=== PATIENT | female | born 1940 | race Caucasian/White ===

== ENCOUNTER 2020-06-26 14:04 | Outpatient (CLI) | payer MEDICARE, SELFPAY ==
--- NOTE | ~2020-06-26 | US_ITS ---
EXAMINATION: US carotid duplex BI DATE: 06/26/2020 15:02 INDICATION: Stroke with paresthesias at the right hand. TECHNIQUE: Grayscale, color Doppler, and pulsed Doppler images of the cervical carotid arteries were obtained. The degree of vessel stenosis is placed in one of the following categories: normal, <50%, 5 0-69%, >=70% but less than near-occlusion, near-occlusion, or total occlusion. Note that percent sten osis relative to normal distal artery lumen diameter is indirectly measured from velocity measurement s as described by Albert, et al. Radiology 2003; 229:340-346. COMPARISON: None. FINDINGS: RIGHT: The right common carotid artery (CCA) peak systolic velocity (PSV) is 76 cm/s. The right internal car otid artery (ICA) PSV is 55 cm/s. The right ICA end-diastolic velocity (EDV) is 19 cm/s. The right IC A/CCA PSV ratio is 0.7. Grayscale and color Doppler images yield an estimate of <50% diameter reducti on from minimal plaque in the ICA. The external carotid artery (ECA) PSV is 116 cm/s. There is antegr bonny flow in the right vertebral artery. LEFT: The left CCA PSV is 74 cm/s. The left ICA PSV is 67 cm/s. The left ICA EDV is 20 cm/s. The left ICA/C CA PSV ratio is 0.9. Grayscale and color Doppler images yield an estimate of <50% diameter reduction from minimal plaque in the ICA. The ECA PSV is 80 cm/s. There is antegrade flow in the left vertebral artery. IMPRESSION: 1. <50% stenosis in the right internal carotid artery. 2. <50% stenosis in the left internal carotid artery. Reviewed, dictated and finalized at location A.
== END 2020-06-26 14:05 | disposition home or self-care (01) ==
LOC: ANHIMG 14:13
PROVIDERS: PCP Internal Medicine; Visit Provider Internal Medicine
DX: I63.9 Cerebral infarction, unspecified (principal); I65.23 Occlusion and stenosis of bilateral carotid arteries
CPT/HCPCS: 93880

== ENCOUNTER 2020-07-31 14:10 | Outpatient (CLI) | payer MEDICARE, SELFPAY ==
--- NOTE | 2020-07-31 | ECHO_ITS ---
Patient Info Name: Antonieta Frost Age: 79 years : 1940 Gender: Female Ht: 61 in Wt: 148 lbs BSA: 1.72 m2 HR: 77 bpm BP: 141 / 86 mmHg Heart Rhythm: Sinus Rhythm Technical Quality: Good Exam Date: 07/31/2020 2:49 PM Exam Location: [facility] Patient Status: Outpatient Admit Date: 07/31/2020 Staff Ordering Physician: CoryMagy MD Processing Technologist: Prince Sadler RDCS, RT Attending Provider: EliceoMagy MD Referring Physician: Cory RICHEY; Exam Type: CA echo doppler color flow Study Info Indications I63.219 - Cerebral infarction due to unspecified occlusion or stenosis of unspecified vertebral arteries Complete two-dimensional, color flow and Doppler transthoracic echocardiogram is performed. Summary 1. Complete two-dimensional, color flow and Doppler transthoracic echocardiogram is performed. 2. Left ventricular systolic function is normal, estimated at 60-65%. 3. There is moderate asymmetric septal increased left ventricular wall thickness. 4. The left ventricular diastolic function is grade I diastolic dysfunction. 5. There is mild mitral valve regurgitation. 6. There is no aortic valve stenosis. 7. No pulmonary hypertension, estimated pulmonary arterial systolic pressure is 26 mmHg. 8. Inferior vena cava is not well visualized. 9. There is trivial pericardial effusion. 10. Consider bubble study to assess for intracardiac shunt and/or transesophageal echocardiogram if clinically indicated. Recommendations * Consider bubble study to assess for intracardiac shunt and/or transesophageal echocardiogram if clinically indicated. Left Ventricle Left ventricular chamber dimension is normal. Left ventricular systolic function is normal, estimated at 60-65%. There is moderate asymmetric septal increased left ventricular wall thickness. The left ventricular diastolic function is grade I diastolic dysfunction. Right Ventricle Right ventricular chamber dimension is normal. Right ventricular systolic function is normal. Left Atria Left atrial chamber dimension is normal. Right Atria Right atrial chamber dimension is normal. Aortic Valve The aortic valve is not well visualized. There is no aortic valve stenosis. There is no aortic valve regurgitation. Pulmonic Valve The pulmonic valve is not well visualized. There is trace pulmonic regurgitation. Mitral Valve The mitral valve has normal leaflets. There is mild mitral valve regurgitation. The mitral valve annulus is mildly calcified. Tricuspid Valve The tricuspid valve leaflets are normal. There is trace tricuspid valve regurgitation. No pulmonary hypertension, estimated pulmonary arterial systolic pressure is 26 mmHg. Pericardium/Pleural The pericardium appears normal. There is trivial pericardial effusion. Inferior Vena Cava Inferior vena cava is not well visualized. Aorta The aortic root size at the sinus of Valsalva is normal. Left Ventricular Outflow Tract Name Value Normal LVOT 2D LVOT Diameter 2.0 cm LVOT Doppler LVOT Peak Gradient 7 mmHg LVOT Me
== END 2020-07-31 14:11 | disposition home or self-care (01) ==
PROVIDERS: PCP Internal Medicine; Visit Provider Internal Medicine
DX: I63.9 Cerebral infarction, unspecified (principal)
CPT/HCPCS: 93306

== ENCOUNTER 2021-01-28 13:56 | Emergency (ER) | payer MEDICARE, SELFPAY ==
--- NOTE | ~2021-01-28 | XR_ITS ---
XR sacrum coccyx min 2V 01/28/2021 15:09 Indication: Recent fall. Low back pain. Procedure: 3 views of the sacrum/coccyx Comparison: No prior studies for comparison. Findings: There is cortical discontinuity along the anterior margin of the lower sacrum, suspicious f or nondisplaced fracture. There is severe lower lumbar spondylosis. Sacral foramen are grossly symmet ce on the AP view. Visualized aspects of the pelvic bones are intact. Impression: 1: Possible nondisplaced lower sacral fracture seen on lateral view only. Reviewed, dictated and finalized at location A. GE DIVER Impression: 1: Possible nondisplaced lower sacral fracture seen on lateral view only.
[2021-01-28 14:14] VITALS: BP 161/90; PULSE 90; RESP 18; TEMP 37.1; O2SAT 97
--- NOTE | 2021-01-28 14:22 | PC.NURSE ---
RICHARD ontiveros at bedside
--- NOTE | 2021-01-28 14:50 | PC.NURSE ---
PT IN XRAY.
--- NOTE | 2021-02-05 08:52 | ED.GENADULT ---
HPI - General Adult General Chief complaint: Fall Stated complaint: fall, buttock pain Time Seen by Provider: 01/28/21 14:12 History of Present Illness HPI narrative: Patient is a 80-year-old female who presents ER with pain in her buttock region. Patient reports she slipped and fell down 1 step. This occurred about 2 weeks ago. She has been ambulatory since then. No lower extremity numbness or tingling. No issues with defecation/urination. Pain persist so she is concerned she may have a fracture. Patient has not been taking medications for her pain. No difficulty with sitting or standing or ambulation. When she fell she did not strike her head or lose consciousness. Related Data Allergies Allergy/AdvReac Type Severity Reaction Status Date / Time No Known Allergies Allergy Mild Unverified 03/11/09 11:06 Review of Systems Musculoskeletal: Musculoskeletal: Reports back pain, Denies joint swelling and Denies muscle cramps Neurologic: Denies syncope, Denies focal weakness and Denies numbness PMFSH Past Medical History Medical History (Updated 02/05/21 @ 08:56 by Piotr Barron MD) Hyperlipidemia Hypertension Surgical History Surgical History (Updated 02/05/21 @ 08:54 by Piotr Barron MD) History of ankle surgery History of surgery on right wrist Social History Social History Gender identity (if verbalized by the patient): Female Exam Narrative: Exam Narrative: GENERAL: Well-appearing, well-nourished, and in no acute distress. HEAD: Normocephalic, atraumatic. CHEST: Clear to auscultation. No respiratory distress. HEART: Regular rate and rhythm. No murmur heard. Normal peripheral pulses. EXTREMITIES: Normal range of motion. No edema. Ambulates without difficulty. Back: No midline tenderness of thoracic or lumbar spine. Patient has no gluteal cleft or sacral tenderness and reports her pain is in the glutes bilaterally which also do not demonstrate reproducible tenderness. NEURO: Alert and oriented x3. PSYCH: Normal mood and affect. Course Course Emergency Course: Patient walked out of the ER before she can get her x-ray results. Vital Signs Vital signs: Vital Signs Temperature 98.7 F 01/28/21 14:14 Pulse Rate 90 01/28/21 14:14 Respiratory Rate 18 01/28/21 14:14 Blood Pressure 161/90 H 01/28/21 14:14 Pulse Oximetry 97 01/28/21 14:14 Temperature 98.7 F 01/28/21 14:14 Pulse Rate 90 01/28/21 14:14 Respiratory Rate 18 01/28/21 14:14 Blood Pressure 161/90 H 01/28/21 14:14 Pulse Oximetry 97 01/28/21 14:14 Medical Decision Making Vital Signs Vital Signs: Vital Signs Temperature 98.7 F 01/28/21 14:14 Pulse Rate 90 01/28/21 14:14 Respiratory Rate 18 01/28/21 14:14 Blood Pressure 161/90 H 01/28/21 14:14 Pulse Oximetry 97 01/28/21 14:14 Temperature 98.7 F 01/28/21 14:14 Pulse Rate 90 01/28/21 14:14 Respiratory Rate 18 01/28/21 14:14 Blood Pressure 161/90 H 01/28/21 14:14 Pulse Oximetry 97 01/28/21 14:14 Imaging Data Radiologist's impression: ITS Impressions Sacrum and Coccyx X-Ray 01/28/21 15:11 Impression: 1: Possible nondisplaced lower sacral fracture seen on lateral view only. Discharge Plan Discharge Clinical Impression: Closed sacral fracture Patient Disposition: Elopement After Seen by Prov Condition: Stable Follow-up/Referrals: Cory,Magy Lundberg MD [Primary Care Provider] -
== END 2021-01-28 16:04 | disposition left against medical advice (07) ==
LOC: ANHED 14:39
PROVIDERS: Emergency Provider Emergency Medicine; PCP Internal Medicine
DX: S32.10XA Unspecified fracture of sacrum, initial encounter for closed fracture (principal); E78.5 Hyperlipidemia, unspecified; I10 Essential (primary) hypertension; W10.9XXA Fall (on) (from) unspecified stairs and steps, initial encounter
CPT/HCPCS: 72220; 99283

== ENCOUNTER 2024-10-31 11:29 | Emergency (ER) | payer MEDICARE, SELFPAY ==
--- NOTE | ~2024-10-31 | XR_ITS ---
XR hand RT min 3V Ordering provider: Bree Crooks NP History: . fall . Comparison: None. FINDINGS: BONES: Fracture at the base of the fifth metacarpal bone is noted. Fracture of the ulnar styloid is a lso noted. No other fractures seen. JOINT SPACES: Narrowing of the distal interphalangeal joints. SOFT TISSUES: Soft tissue swelling seen near to the fifth metacarpal bone. IMPRESSION: Fracture at the base of the right fifth metacarpal bone and in the right ulnar styloid. Reviewed, dictated and finalized at location A.
[2024-10-31 11:46] VITALS: BP 128/115; PULSE 75; RESP 18; TEMP 37.1; O2SAT 99
--- NOTE | 2024-10-31 12:11 | ED_ITS ---
HPI - Extremity Injury (Upper) General Chief Complaint: Extremity Injury, Upper Stated Complaint: right hand hurts Time Seen by Provider: 10/31/24 12:25 Source: patient and RN notes reviewed Mode of arrival: ambulatory Limitations: no limitations History of Present Illness HPI narrative: 84-year-old female presents with concern for right hand pain. Reports 11 days ago she fell and landed on her right hand has had lateral hand pain since that time. She reports her physical therapist urged her to get an x-ray. She reports pain with gripping. She denies decreased strength, sensation, range of motion in the hand or digits MD complaint: injury to: right and hand Related Data Home Medications ?Medication ?Instructions ?Recorded ?Confirmed ?Last Taken ?Type alendronate 70 mg tablet mg PO 10/31/24 Unknown History amlodipine 5 mg tablet mg 10/31/24 Unknown History carbidopa 25 mg-levodopa 100 mg tablet 10/31/24 Unknown History tablet losartan 50 mg tablet mg 10/31/24 Unknown History Allergies Allergy/AdvReac Type Severity Reaction Status Date / Time No Known Allergies Allergy Mild Verified 10/31/24 11:44 Review of Systems Review of Systems: CONSTITUTIONAL: Denies malaise, chills, sweats, or fever. CARDIOVASCULAR: Denies chest pain, palpitations, or edema. RESPIRATORY: Denies cough or dyspnea. SKIN: Denies rash or itching, bruising, redness, swelling. MUSCULOSKELETAL: Reports right hand pain NEUROLOGIC: Denies numbness, weakness All systems reviewed & are unremarkable except as noted in HPI and below PMFSH Past Medical History Medical History (Updated 10/31/24 @ 12:39 by Bree Crooks NP) Hyperlipidemia Hypertension Surgical History Surgical History (Updated 02/05/21 @ 08:54 by Piotr Barron MD) History of ankle surgery History of surgery on right wrist Social History Social History Gender identity (if verbalized by the patient): Female Comments At time of signature, agree with nursing past medical, surgical, social and family history. There is no relevant family history pertinent to the presenting complaint Exam Narrative: GENERAL: Well-appearing, well-nourished, and in no acute distress. HEAD: Normocephalic EYES: PERRLA, conjunctivae clear NECK: Supple. CHEST: Speaks in full sentences. No respiratory distress. HEART: Regular rate and rhythm. Normal and equal peripheral pulses. EXTREMITIES: Right hand and digits of hand have normal strength and sensation. 5/5 strength with digit flexion, extension. Range of motion normal. No clubbing, cyanosis, or edema noted. Lateral hand tenderness. Skin intact. Normal digital cascade with flexion of fingers, median, ulnar and radial nerve intact. Normal sensation of each side of finger. Can perform 'okay' sign, 'cross over finger test of index and middle fingers' and 'thumbs up' sign. No scissoring. Normal thumb opposition. Good capillary refill and radial pulse. Distal capillary refill less than 3 seconds. SKIN: [place], dry, intact, pink. No rash NEURO: Alert and oriented x3. PSYCH: Normal mood and affect Course Course Emergency Course: Patient uses a walker for mobility. I discussed the dilemma with her and her son regarding splinting her hand in having her use a walker. There is a device that can be adapted is a walker to use with an upper extremity injury, however that device is not available locally and has to be ordered online. Son reports he will assist his mother with mobility, they will order the walker attachment and follow-up with orthopedics. They would like her hand to be splinted today. Patient is aware of diagnosis, understands and agrees to treatment plan. Anticipatory guidance given. Patient agrees to follow-up as directed and is aware of reasons to seek care at the emergency department. Portions of this record may have been created with voice recognition software Level of Care: Express Care Visit Vital Signs Vital signs: Vital Signs Temperature 98.7 F 10/31/24 11:46 Pulse Rate 75 10/31/24 11:46 Respiratory Rate 18 10/31/24 11:46 Blood Pressure 128/115 H 10/31/24 11:46 Pulse Oximetry 99 10/31/24 11:46 Oxygen Delivery Room Air 10/31/24 11:46 Temperature 98.7 F 10/31/24 11:46 Pulse Rate 75 10/31/24 11:46 Respiratory Rate 18 10/31/24 11:46 Blood Pressure 128/115 H 10/31/24 11:46 Pulse Oximetry 99 10/31/24 11:46 Oxygen Delivery Room Air 10/31/24 11:46 Reviewed. Procedures Orthopedic Splinting/Casting Injury #1: Splinting/Casting Date: 10/31/24 Splinting/Casting Time: 12:35 Upper Extremity Injury Location: hand Splint: customized in ED OCL: ulnar gutter Pre-Procedure Neuro Vascular Exam: normal Post-Procedure Neuro Vascular Exam: normal Other Orthopedic Equipment: other (Sling) MDM - Extremity Injury (Upper) MDM Narrative Medical decision making narrative: Patients injury and pain is consistent with musculoskeletal etiology. No signs of neurological or vascular compromise on exam. Compartments and tissues are soft without signs of compartment syndrome. Pain is felt appropriate for further evaluation on an outpatient basis. Imaging Data My impression: Images reviewed, interpreted by radiologist, agree, see report. Radiologist's impression: XR hand RT min 3V Ordering provider: Bree Crooks NP History: . fall . Comparison: None. FINDINGS: BONES: Fracture at the base of the fifth metacarpal bone is noted. Fracture of the ulnar styloid is also noted. No other fractures seen. JOINT SPACES: Narrowing of the distal interphalangeal joints. SOFT TISSUES: Soft tissue swelling seen near to the fifth metacarpal bone. IMPRESSION: Fracture at the base of the right fifth metacarpal bone and in the right ulnar styloid. Critical Care Time Critical Care Time Critical Care Time: No Discharge Plan Discharge Clinical Impression: Fracture of metacarpal Patient Disposition: Home, Self-Care Condition: Stable Instructions: Antibiotic Form Additional Instructions: Please rest, ice and elevate the affected extremity. Please take Motrin 600mg every 8 hours, as needed, for pain (take with food). Follow up with Orthopedic Surgery in 1-2 days for further evaluation - please call for an appointment. Keep cast clean, dry and on. Please use garbage bag while showering to keep cast dry. Use a platform walker attachment to help keep weight off your hand when using her walker. Please go to ER immediately for increased pain, tingling/numbness, swelling, redness, and fever Patient Language: [place]ian Prescriptions: No Action losartan 50 mg tablet alendronate 70 mg tablet PO amlodipine 5 mg tablet carbidopa-levodopa 25-100 mg tablet Follow-up/Referrals: Farhad Casas MD [Physician] - Magy Ray MD [Primary Care Provider] - Time of Disposition: 12:41
== END 2024-10-31 12:50 | disposition home or self-care (01) ==
PROVIDERS: Emergency Provider Nurse Practitioner; PCP Internal Medicine
DX: S62.316A Displaced fracture of base of fifth metacarpal bone, right hand, initial encounter for closed fracture (principal); W19.XXXA Unspecified fall, initial encounter; E78.5 Hyperlipidemia, unspecified; I10 Essential (primary) hypertension
CPT/HCPCS: 29125; 73130; 99214; A4565; G0463

== ENCOUNTER 2025-02-19 14:35 | Emergency (ER) | payer MEDICARE, SELFPAY ==
--- NOTE | ~2025-02-19 | XR_ITS ---
HISTORY: FALL, PAIN POSTERIOR LEFT LOWER RIBS COMPARISON: None TECHNIQUE: 3 views of the left ribs were performed FINDINGS: Acute minimally displaced fractures of the left posterior lateral margins of the ninth and 10th ribs. No additional acute displaced fracture is appreciated. A small left-sided pleural effusion is identified. The remainder of the left hemithorax is unremarkable. Bone demineralization is age-appropriate. IMPRESSION: Acute minimally displaced fractures of the left posterior lateral margins of the ninth a nd 10th ribs. Reviewed, dictated and finalized at location A. IMPRESSION: Acute minimally displaced fractures of the left posterior lateral margins of the ninth and 10th ribs.
[2025-02-19 14:50] VITALS: BP 155/86; PULSE 77; RESP 18; TEMP 36.8; O2SAT 99
--- NOTE | 2025-02-19 15:20 | ED.FALL ---
HPI - Fall General Chief Complaint: Fall Stated Complaint: left side back pain after a fall Time Seen by Provider: 02/19/25 15:00 Source: patient Mode of arrival: ambulatory Limitations: no limitations History of Present Illness HPI Narrative: Antonieta is a 84-year-old female patient presenting to the clinic today with complaints of left lateral rib pain. She reports that she fell on Tuesday of last week and landed on the left side. Has bruising and swelling to the left lateral rib. Some discomfort with movement and when taking a deep breath. Denies any shortness of breath or chest pain. Denies hitting her head or any loss of consciousness. Related Data Home Medications ?Medication ?Instructions ?Recorded ?Confirmed ?Last Taken ?Type alendronate 70 mg tablet mg PO 10/31/24 02/05/25 Unknown History amlodipine 5 mg tablet mg 10/31/24 02/05/25 Unknown History carbidopa 25 mg-levodopa 100 mg tablet 10/31/24 02/05/25 Unknown History tablet losartan 50 mg tablet mg 10/31/24 02/05/25 Unknown History ezetimibe 10 mg tablet 10 mg PO DAILY 11/05/24 02/05/25 Unknown History Allergies Allergy/AdvReac Type Severity Reaction Status Date / Time No Known Allergies Allergy Mild Verified 02/19/25 14:45 Review of Systems Review of Systems: Pertinent positives per HPI. Patient denies any fever, chills, rash, headache, visual changes, dizziness, cough, shortness of breath, chest pain, palpitations, nausea, vomiting, diarrhea, constipation, abdominal pain, or any urinary issues. [facility] Past Medical History Medical History BMI 28.0-28.9,adult At high risk for falls Osteoporosis Progressive supranuclear palsy Hyperlipidemia Hypertension Surgical History Surgical History History of ankle surgery History of surgery on right wrist Family History Family History Father Mother Social History Social History Smoking status: Never smoker Second hand tobacco smoke exposure: Yes Alcohol intake: never Substance use: never Substance use type: does not use Do You Feel Safe in your Home?: Yes Lack of Transportation: No Lack of Food: Never True Current Housing: I Have Housing Concerned About Future Housing: No Difficulty Paying Gas/Electric Bills: No Difficulty Paying for Meds: No Currently Unemployed: No Education: Bachelor's Degree Difficulty w/ Childcare or Family Care: No Living arrangements: alone Occupation/Education: retired Additional occupation/education comments: [employer] Gender identity (if verbalized by the patient): Female Comments At the time of my signature, I reviewed and agree with the nursing past medical, surgical, social, and family history. There is no relevant family history pertinent to the patient complaint. Exam Narrative: General: Well-developed, well nourished, in no apparent distress Head: Normocephalic, atraumatic. Chest wall: Bruising and mild swelling noted to the left posterior lateral ribs, tenderness to palpation over this area, even rise and fall of the chest wall with respirations Cardio: Regular rate and rhythm, s1 and s2 normal, no murmur appreciated. Resp: Clear to auscultation bilaterally, no rhonchi, rales, wheezing or rubs. Extremities: No deformity, no edema, no cyanosis, capillary refill less than 2 seconds, peripheral pulses palpable and strong. Integumentary: [place], warm, and dry, bruising noted to the chest wall/left lateral ribd Course Course Emergency Course: Portions of this record may have been created with voice recognition software. Level of Care: Express Care Visit Vital Signs Vital signs: Vital Signs Temperature 36.8 C 02/19/25 14:50 Pulse Rate 77 02/19/25 14:50 Respiratory Rate 18 02/19/25 14:50 Blood Pressure 155/86 H 02/19/25 14:50 Pulse Oximetry 99 02/19/25 14:50 Oxygen Delivery Room Air 02/19/25 14:50 Temperature 36.8 C 02/19/25 14:50 Pulse Rate 77 02/19/25 14:50 Respiratory Rate 18 02/19/25 14:50 Blood Pressure 155/86 H 02/19/25 14:50 Pulse Oximetry 99 02/19/25 14:50 Oxygen Delivery Room Air 02/19/25 14:50 Vital signs reviewed MDM - Fall MDM Narrative Medical decision making narrative: At the time of visit patient is resting comfortably on the exam table. Patient appears to be nontoxic. Diagnostics: X-ray of the left ribs were performed and shows some acute minimally displaced 9th and 10th ribs-small left-sided pleural effusion Plan: Patient has rib fracture to the 9th and 10th rib on the left side. Lung sounds are clear and patient oxygenation saturation is 99%. Denies any chest pain or shortness of breath. Recommend follow-up with her PCP in 5-7 days. Supportive measures were discussed with the patient and they voiced understanding discharge instructions and agrees to treatment plan. Return precautions reviewed Differential Diagnosis Differential diagnosis: Likely other (Rib contusion, chest wall contusion, rib fracture, pneumothorax, hemothorax) Imaging Data Radiologist's impression: ITS Impressions Ribs X-Ray 02/19/25 16:00 IMPRESSION: Acute minimally displaced fractures of the left posterior lateral margins of the ninth and 10th ribs. Discharge Plan Discharge Clinical Impression: Pleural effusion Left rib fracture Qualifiers: Encounter type: initial encounter Rib fracture type: multiple ribs Fracture type: closed Qualified Code(s): S22.42XA - Multiple fractures of ribs, left side, initial encounter for closed fracture Patient Disposition: Home, Self-Care Condition: Stable Instructions: Antibiotic Form, Rib Fracture (ED), Pleural Effusion (DC) Additional Instructions: X-ray shows acute minimally displaced fractures of the left posterior lateral margins of the 9th and 10th rib Splint the area with cough, sneezing, and taking deep breaths Incentive spirometer every 2-4 hours while awake May take Tylenol/Motrin as needed for pain Follow-up with your PCP in 5-7 days If you develop worsening of symptoms-increasing chest pain, shortness of breath, difficulty breathing, fever, confusion, weakness, or lethargy recommend going to the emergency room Patient Language: Citizen Of [place] Prescriptions: No Action losartan 50 mg tablet alendronate 70 mg tablet PO amlodipine 5 mg tablet carbidopa-levodopa 25-100 mg tablet ezetimibe 10 mg tablet 10 mg PO DAILY Follow-up/Referrals: Prince Walsh DO [Primary Care Provider] - Time of Disposition: 16:18 Quality NIHSS Nursing Documentation ED NIHSS nursing documentation: reviewed/agree
== END 2025-02-19 16:25 | disposition home or self-care (01) ==
PROVIDERS: Emergency Provider Nurse Practitioner Family; PCP Family Medicine
DX: J90 Pleural effusion, not elsewhere classified (principal); S22.42XA Multiple fractures of ribs, left side, initial encounter for closed fracture; W19.XXXA Unspecified fall, initial encounter; M81.0 Age-related osteoporosis without current pathological fracture; I10 Essential (primary) hypertension; E78.5 Hyperlipidemia, unspecified; G23.1 Progressive supranuclear ophthalmoplegia [Steele-Richardson-Olszewski]
CPT/HCPCS: 71100; 99213; G0463

== ENCOUNTER 2025-09-09 12:43 | Emergency (ER) | payer MEDICARE, SELFPAY ==
--- NOTE | ~2025-09-09 | CT_ITS ---
EXAMINATION: CT brain wo con DATE: 09/09/2025 13:43 INDICATION: Fall with head injury and laceration to the head TECHNIQUE: Computed tomography (CT) of the head was performed without intravenous contrast. Sagittal and coronal reconstructions were performed. The mA was adjusted according to patient size. Iterative reconstruction technique was employed. The dose-length product was 605.33 mGy-cm. COMPARISON: None FINDINGS: Chronic appearing fracture with mild angulation at the left nasal bone. No fracture. No acute intracranial hemorrhage, acute infarction or abnormal extra axial fluid collection. There is mild scattered white matter hypoattenuation consistent with chronic small vessel ischemic disease. Symmetric prominence of the sulci consistent with mild to moderate age-appropriate diffuse cerebral volume loss. Ventricles are normal and symmetric. No mass/mass effect. Changes of bilateral intraocular lens replacement. The orbits and mastoid air cells are normal. Osteoma the right frontoethmoidal recess. Paranasal sinuses otherwise unremarkable. Bilateral evin bullosa. Likely developmentally midline developmental nonfusion of the anterior and posterior ring of C1. IMPRESSION: 1. Chronic appearing mildly angulated left ischial bone fracture. No acute fracture or acute intracranial process. 2. Age-related changes including mild to moderate diffuse volume loss and mild scattered white matter hypoattenuation consistent with chronic small vessel ischemic disease. Reviewed, dictated and finalized at location A. IMPRESSION: 1. Chronic appearing mildly angulated left ischial bone fracture. No acute frac ture or acute intracranial process. 2. Age-related changes including mild to moderate diffuse volume loss and mild scattered white matter hypoattenuation consistent with chronic small vessel isc hemic disease.
--- NOTE | ~2025-09-09 | CT_ITS ---
EXAMINATION: CT cervical spine wo con DATE: 09/09/2025 13:43 INDICATION: Status post fall. Head injury. TECHNIQUE: Computed tomography (CT) of the cervical spine was performed without intravenous contrast. The dose-length product was 194 mGy-cm. Automated exposure control and iterative reconstruction technique were employed. COMPARISON: None FINDINGS: There is disc narrowing at C4-5, C5-6 and C6-7. There is degenerative anterolisthesis at C3-4 secondary to facet hypertrophy. Odontoid process is normal. Craniovertebral junction within normal limits. No evidence for perched facet. There is multilevel uncinate and facet hypertrophy. There is a sclerotic lesion of C5 on the right most likely benign bone island, although metastatic disease is not excluded. No paraspinal soft tissue abnormality. Lung apices are normal. IMPRESSION: 1. No acute abnormality of the cervical spine. 2: Severe cervical spondylosis with degenerative anterolisthesis at C3-4. 3: Sclerotic lesion of C5 involving the posterior aspect of the body on the right extending to the pedicle. Although this is likely a benign bone island there are no prior examinations for direct comparison. There is a history of malignancy, consider metastatic disease. Reviewed, dictated and finalized at location O. IMPRESSION: 1. No acute abnormality of the cervical spine. 2: Severe cervical spondylosis with degenerative anterolisthesis at C3-4. 3: Sclerotic lesion of C5 involving the posterior aspect of the body on the rig ht extending to the pedicle. Although this is likely a benign bone island there are no prior examinations for direct comparison. There is a history of maligna ncy, consider metastatic disease.
[2025-09-09 12:51] VITALS: BP 119/61; PULSE 74; RESP 20; TEMP 36.3; O2SAT 99
--- NOTE | 2025-09-09 14:24 | PC.NURSE ---
Called Kerrie at [facility] ([phone]) and gave nurse to nurse report. Discussed imaging/results and POC, advised will update Tetanus booster and pt is to be sent back w/ a staple removal. Per Kerrie, she will call pts son who is local and request for him to come pick her up, no vehicle service provided by [facility].
--- NOTE | 2025-09-09 14:27 | ED.WOUNDLAC ---
HPI - Wound/Laceration General Chief Complaint: Wound/Laceration Stated Complaint: fell today hit head Time Seen by Provider: 09/09/25 13:56 History of Present Illness HPI narrative: Patient is an 85-year-old female who presents ER after falling and striking her head. She was in her bathroom when she lost balance falling back and striking her head but unsure on what she struck on. She has 1.5 cm laceration to the occiput. Unknown last tetanus shot. No discomfort to any extremities. No neck pain. Denies fevers or chills or sweats. Related Data Home Medications ?Medication ?Instructions ?Recorded ?Confirmed ?Last Taken ?Type ezetimibe 10 mg tablet 10 mg PO DAILY 11/05/24 06/03/25 Unknown History acetaminophen 500 mg tablet 500 mg PO Q4H PRN 02/21/25 06/03/25 Unknown History (Tylenol Extra Strength) amlodipine 5 mg tablet 5 mg PO DAILY 05/01/25 06/03/25 Unknown History carbidopa 25 mg-levodopa 100 mg 1 tablet PO TID 05/01/25 06/03/25 Unknown History tablet losartan 50 mg tablet 50 mg PO DAILY 05/01/25 06/03/25 Unknown History Allergies Allergy/AdvReac Type Severity Reaction Status Date / Time No Known Allergies Allergy Mild Verified 09/09/25 12:49 Review of Systems Review of Systems: All systems reviewed & are unremarkable except as noted in HPI and below Constitutional: Constitutional: Reports no additional constitutional complaints Cardiovascular: Cardiovascular: Reports no additional cardiovascular complaints Respiratory: Respiratory: Reports no additional respiratory complaints Neurologic: Reports system reviewed and no additional complaints, except as documented [facility] Past Medical History Medical History BMI 28.0-28.9,adult At high risk for falls Osteoporosis Progressive supranuclear palsy Hyperlipidemia Hypertension Surgical History Surgical History History of ankle surgery History of surgery on right wrist Family History Family History Father Mother Social History Social History Smoking status: Never smoker Second hand tobacco smoke exposure: Yes Alcohol intake: never Substance use: never Substance use type: does not use Do You Feel Safe in your Home?: Yes Lack of Transportation: No Lack of Food: Never True Current Housing: I Have Housing Concerned About Future Housing: No Difficulty Paying Gas/Electric Bills: No Difficulty Paying for Meds: No Currently Unemployed: No Education: Bachelor's Degree Difficulty w/ Childcare or Family Care: No Living arrangements: alone Occupation/Education: retired Additional occupation/education comments: [employer] Gender identity (if verbalized by the patient): Female Exam Narrative: GENERAL: Well-appearing, well-nourished, and in no acute distress. HEAD: Normocephalic, to cm laceration left posterior occipital region. ENT: Mucous membranes moist. CHEST: Clear to auscultation. No respiratory distress. HEART: Regular rate and rhythm. Normal peripheral pulses. EXTREMITIES: Normal range of motion. No edema. SKIN: Warm, dry, no rash. NEURO: Alert and oriented x3. PSYCH: Normal mood and affect. Course Course Emergency Course: Laceration closed. Tetanus updated. Discussed lytic lesion on C-spine, no history of malignancy, likely bone island. Follow-up with PCP. Discharge. Vital Signs Vital signs: Vital Signs Temperature 97.3 F L 09/09/25 12:51 Pulse Rate 74 09/09/25 12:51 Respiratory Rate 20 09/09/25 12:51 Blood Pressure 119/61 09/09/25 12:51 Pulse Oximetry 99 09/09/25 12:51 Temperature 97.3 F L 09/09/25 12:51 Pulse Rate 74 09/09/25 12:51 Respiratory Rate 20 09/09/25 12:51 Blood Pressure 119/61 09/09/25 12:51 Pulse Oximetry 99 09/09/25 12:51 Procedures Laceration Laceration 1: Date: 09/09/25 Time: 14:40 Size (cm): 2 Description: linear Depth: simple, single layer Pre-repair: wound explored and irrigated ====== Skin Level ====== Skin layer closed with: duatre Number of sutures: 3 ====== Subcutaneous Layer ====== ====== Muscle Layer ====== ====== Tendon Layer ====== MDM - Wound/Laceration Imaging Data Radiologist's impression: ITS Impressions Head CT 09/09/25 13:44 IMPRESSION: 1. Chronic appearing mildly angulated left ischial bone fracture. No acute fracture or acute intracranial process. 2. Age-related changes including mild to moderate diffuse volume loss and mild scattered white matter hypoattenuation consistent with chronic small vessel ischemic disease. Cervical Spine CT 09/09/25 13:57 IMPRESSION: 1. No acute abnormality of the cervical spine. 2: Severe cervical spondylosis with degenerative anterolisthesis at C3-4. 3: Sclerotic lesion of C5 involving the posterior aspect of the body on the right extending to the pedicle. Although this is likely a benign bone island there are no prior examinations for direct comparison. There is a history of malignancy, consider metastatic disease. Discharge Plan Discharge Clinical Impression: Laceration of scalp, Bone island Patient Disposition: Home Condition: Stable Instructions: Staple Care (ED) Additional Instructions: Remove your duarte in 7 days. Return the ER if your wound is red and hot, it is draining pus, or you have additional concerns. Patient Language: Tajik Prescriptions: No Action ezetimibe 10 mg tablet 10 mg PO DAILY acetaminophen [Tylenol Extra Strength] 500 mg tablet 500 mg PO Q4H PRN amlodipine 5 mg tablet 5 mg PO DAILY carbidopa-levodopa 25-100 mg tablet 1 tablet PO TID losartan 50 mg tablet 50 mg PO DAILY Calahist 1-0.1 % lotion 1 applic topical TID PRN (Reason: skin irritation) Qty: 177 0RF Follow-up/Referrals: Prince Walsh DO [Primary Care Provider, Family Practice] - 1 Week
[2025-09-09] MEDS: TETANUS,DIPHTHERIA,AC PERTUSSIS ADULT (0.5 ML) BOOSTRIX IM (14:30)
[2025-09-09 15:26] VITALS: BP 134/92; PULSE 80; RESP 18; O2SAT 97
--- OUTSIDE RECORDS SUMMARY | 2025-09-09 17:20 | XMS_ITS | Clinical Summary ---
Author Organization [facility] Address [address] [place] [address] Care Team Providers Care Value Advisor Name Role Phone Anthony Silva MD Unavailable [phone] Prince Walsh DO Primary Care Provider Allergies Active Allergy Reactions Criticality Noted Date Comments Hydrochlorothiazide Hydrocodone Unknown Low 09/03/2013 itchy Triamterene Medications calcium carbonate-vit D3-min 600 mg calcium- 400 unit tabletIndications :jacquie-500 daily vit d-600 daily Take by mouth Active amLODIPine (NORVASC) 2.5 mg tabletIndications :hypertension Take 2 tablets by mouth daily Active ezetimibe (ZETIA) 10 mg tabletIndications :hyperlipidemia Take 1 tablet by mouth daily Active losartan (COZAAR) 50 mg tabletIndications :hypertension Take 1 tablet by mouth daily Active alendronate (FOSAMAX) 70 mg tabletIndications :Post-Menopausal Osteoporosis Take 70 mg by mouth every 7 days. Indications: decreased bone mass following menopause Active amoxicillin (AMOXIL) 500 mg tablet/capsuleInd ications:Prophyla xis, Medical Take 2,000 mg by mouth 1 time if needed (dental procedure). Indications: Prophylaxis, Medical Active carbidopa-levodop a (SINEMET) 25-100 mg per tabletIndications :Parkinsonism Take 1.5 tablets by mouth 3 (three) times a day 405 tablet 3 5 11/02/20 25 Active citalopram (CeleXA) 10 mg tablet Take 1 tablet (10 mg total) by mouth daily 5 Active Active Problems Problem Noted Date Diagnosed Date Parkinsonism 08/14/2025 Assessment & Plan (08/14/2025 1:04 PM CDT): Mrs. Frost is an 84 y.o. 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 Briefly, she presented in the past to our clinic with a two year history of progressively worse gait impairment, and postural instability associated with daily falls. She also has a history of micrographia, and mild difficulty with fine motor movements. Since her last visit, she has had worsened mobility now requiring a walker at all times which has reduced her fall frequency. Her physical examination today is remarkable for significant postural instability, with no clear focal weakness. 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 She also had oculomotor difficulties, specifically vertical gaze limitation on smooth pursuit and saccades. There was also possible sq wave jerks on examination. Moreover, she had a prior MRI brain with evidence of midbrain atrophy. 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 Today, I offered her a trial of increased levodopa to see if she may notice possible further benefit for mobility, bradykinesia however she is not inclined to pursue this. She recently completed PT and should return when insurance will allow for this. Recommendations: Continue current carbidopa-levodopa 25/100 mg 1.5 tabs TID Resume PT when able Follow-up with Dr. Dockery in approximately 3-4 months if he has available she has not seen him since 08/2024 (and at at that visit he'd wanted to see her in 9 months) Annual NPT next visit Sinus pause 08/21/2020 Assessment & Plan (08/21/2020 12:15 PM CDT): Event monitor showed one asymptomatic 4.1 second pause in the an employee sponsor or advocate and of 06/29/2020, likely a sinus pause. She has no history of lightheadedness, presyncope, or syncope. I suspect that this was vasovagally mediated, perhaps during a bowel movement. In the absence of symptoms, a pacemaker is not indicated. I would recommend avoiding rate slowing medications. AV block, Mobitz 1 08/21/2020 Assessment & Plan (08/21/2020 12:16 PM CDT): Occasional episodes of asymptomatic Mobitz one second-degree AV block, including brief 2-1 av block. Like her sinus pause, these are asymptomatic. I would recommend avoiding medications which can affect AV conduction, such as diltiazem and verapamil. It is possible that over time conduction system disease will progress, but not certain that it will. Asymmetric septal hypertrophy 08/21/2020 Assessment & Plan (08/21/2020 12:17 PM CDT): This was described on her recent echo. It is not heard on exam, and there was no significant gradient at the left ventricular outflow tract. Systolic anterior motion of the mitral valve was not described. She does not have a murmur. She has no symptoms referable to this. I would consider it an incidental and insignificant finding. Old cerebrovascular accident (CVA) without late effect 08/21/2020 Assessment & Plan (08/21/2020 12:19 PM CDT): Small areas of hypoattenuation described on recent head CT. These are consistent with prior CVA, likely on the basis of hypertension. She has not been shown to have any atrial fibrillation, and the conditions which have been identified, sinus pauses, Mobitz one second-degree AV block, and hemodynamically well tolerated asymmetric septal hypertrophy, would not have contributed to CVAs. History of colonic polyps 06/04/2014 Overview (02/25/2017): PRSNL HST COLONIC POLYPS Family history of ischemic heart disease 014 Overview (02/23/2017): FAM HX-ISCHEM HEART DIS Benign hypertension 04/06/2014 Overview (02/23/2017): BENIGN HYPERTENSION Assessment & Plan (08/21/2020 12:18 PM CDT): Blood pressure is well controlled on her current regimen which she is tolerating well. It sounds as if blood pressure may not have been so well controlled prior to this regimen, which may have contributed to her infarcts seen on CT scan. Hyperlipidemia 04/06/2014 Overview (02/25/2017): HYPERLIPIDEMIA NEC/NOS Assessment & Plan (08/21/2020 12:20 PM CDT): Lipids are well controlled on her current small dose of rosuvastatin, which she should continue. Osteoarthritis of knee 04/06/2014 Overview (02/25/2017): Degenerative Arthritis of Knee Osteoporosis 04/06/2014 Overview (02/25/2017): OSTEOPOROSIS NOS Encounters Date Type Department Care Team Description 08/14/2025 12:00 PM CDT Office Visit [facility] Medicine Movement Disorders [address] [place] [address] Sadie Stratton NP Parkinsonism, unspecified Parkinsonism type (HCC) (Primary Dx) 08/14/2025 Telephone [facility] Medicine Scheduling [address] [place] [address] Goldie Irene from Last 3 Months Immunizations Immunization Administration Dates Next Due Influenza, Split 08/21/2010,09/21/2009 Pneumococcal Polysaccharide PPV23 11/21/2007 Tdap 05/09/2007 ZOSTER LIVE 05/09/2008 Surgical History Surgery Date Site/Laterality Comments OTHER SURGICAL HISTORY distal radius fx: ORIF OTHER SURGICAL HISTORY L ankle fx: s/p ORIF Medical History Medical History Date Comments Hx Other Medical distal radius f x Hx Other Medical L ankle fx Hypertension Osteoporosis Family History Medical History Relation Name Comments Heart attack Father Heart attack Sister Relation Name Status Comments Father Sister Social History Tobacco Use Types Packs/Day Years Used Date Smoking Tobacco: Never Smokeless Tobacco: Never Tobacco Cessation:Counseling Given: Not Answered Alcohol Use Standard Drinks/Week Comments Yes 0 (1 standard drink = 0.6 oz pur e alcohol) Very Seldom, Socially OASIS D0700: Social Isolation Answer Da te Recorded Frequency of experiencing loneliness or isolatio n Never 01/23/2025 OASIS A1250: Transportation Answer Date Recorded Lack of Transportation (Medical) No 01/23/2025 Lack of Transportation (Non-Medical) No 01/23/2025 Patient Unable or Declines to Respond No 01/23/2025 OASIS B1300: Health Literacy Answer All e Recorded Frequency of needing help to read materials from doctor or pharmacy Never 01/23/2025 Comments Unknown Sex and Gender Information Value Date Recorded Sex Assigned at Not on file Legal Sex Female 11:31 PM BONE DENSITY TECHNICIAN Gender Identity Not on file Sexual Orientation Not on file Obstetrics History Last Filed Vital Signs Vital Sign Reading Time Taken Comments Blood Pressure 151/77 08/14/2025 12:02 PM CDT Pulse 68 08/14/2025 12:02 PM CDT Temperature 36.5 C (97.7 F) 01/23/2025 1:45 PM BONE DENSITY TECHNICIAN Respiratory Rate 18 01/23/2025 1:45 PM BONE DENSITY TECHNICIAN Oxygen Saturation 98% 01/23/2025 1:45 PM BONE DENSITY TECHNICIAN Inhaled Oxygen Concentration - - Weight 60.1 kg (132 lb 9.6 oz) 08/14/2025 12:02 PM CDT Height 152.4 cm (5') 08/14/2025 12:02 PM CDT Body Mass Index 25.9 08/14/2025 12:02 PM CDT Plan of Treatment Health Maintenance Due Date Last Done Comments Fall Risk Assessment 1940 Hepatitis B Screening 1960 Well Visit 65+ 2007 Zoster Vaccine (2 of 3) 07/04/2008 05/09/2008 DTaP/Tdap/Td Vaccine (2 - Td or Tdap) 05/09/2017 05/09/2007 Osteoporosis Screening-Bone Density Scan 05/26/2024 05/26/2022, 02/20/2019, 01/09/2019, Additional history exists Depression Screening 01/12/2025 01/12/2024 Influenza Vaccine (#1) 2025 9, 08/21/2010, 09/21/2009 Pneumococcal vaccine 65+ Completed 020, 01/28/2019, 11/21/2007 Procedures Procedure Name Priority Date/Time Associated Diagnosis Comments DEXA AXIAL SKELETON BONE DENSITY 1 OR MORE SITES Schedule Routine, Read Routine (OP Routine) 05/26/2022 10:43 AM CDT Age-related osteoporosis without current pathological fracture from Last 3 Months or Most Recently Relevant to Health Maintenance Results * Dexa Axial Skeleton Bone Density 1 or 2 Site (05/26/2022 10:43 AM CDT) Anatomical Region Laterality Modality Body N/A Digital Radiogra phy 05/26/2022 10:5 9 AM CDT Impressions 05/26/2022 9:40 PM CDT 1. The bone mineral density of the lumbar spine is moderately decreased. There has been a statistically significant decrease in bone mineral density since the baseline examination of 05/11/1999. 2. The bone mineral density of the left femoral neck is moderately decreased. There has been a statistically significant decrease in bone mineral density since the baseline examination of 01/24/1997. 3. The bone mineral density of the left total hip is moderately decreased. There has been a statistically significant decrease in bone mineral density since the baseline examination of 01/24/1997. 4. Overall, the above findings are diagnostic of osteoporosis by WHO criteria. 5. Calculation of fracture risk using the FRAX model is not appropriate in certain settings. It was not performed in this patient because the patient met the following condition(s): treated for osteoporosis. General comments regarding interpretation of bone density measurements: A) In children, premenopausal woman and males under age 50 not at increased risk for fractures only Z-scores, not T-scores are used to indicate risk. A Z-score above -2.0 is defined as within the expected range for age and Z-score at or less than -2.0 is below the expected range for age. A Z-score below the expected range for age in a patient with recent fractures and/or chronic corticosteroid treatment is consistent with a diagnosis of osteoporosis. B) In post menopausal women and males over 50, comparison of the measured bone mineral density with the average value in young normal subjects (the T-score) has been found to be useful in assessing fracture risk. Fracture risk approximately doubles for each 1.0 standard deviation (SD) in individual's hip or spine bone mineral density is below the average value of young normal subjects. The World Health Organization (WHO) has defined T-scores of -1.0 to -2.5 as diagnostic of low bone mass (OSTEOPENIA), and T-scores of -2.5 or lower to be diagnostic of OSTEOPOROSIS, based on the site of lowest bone density. Note that there will be a change in reporting format and reference databases as patients move from the younger population (group A) to the older population (group B) The National Osteoporosis Foundation (www.nof.org) recommends adequate intake of calcium and vitamin D and regular weight-bearing exercise in all patients. They recommend pharmacologic treatment in postmenopausal women and men age 50 and older presenting with any of the followin) Osteoporosis, after appropriate evaluation to exclude secondary causes. 2) A hip or vertebral (clinical or radiographic) fracture, regardless of the bone density. 3) Low bone mass (Osteopenia) and one or more of: other prior fractures, secondary causes associated with high risk of fracture (such as glucocorticoid use or total immobilization), or computed high risk of fracture (10-yr probability of hip fracture >= 3% or a 10-yr probability of any major osteoporosis-related fracture >= 20% based on the [place].-adapted WHO algorithm), available at http://www.shef.ac.uk/FRAX). Dictated by: Hilaria Shafer MD The radiology attending physician has personally reviewed this study, and had reviewed and/or edited this written report and agrees with it. Electronically signed by: Ethel Ham MD, Ph.D Narrative 05/26/2022 9:40 PM CDT BONE DENSITOMETRY OF THE SPINE AND HIP DATE OF STUDY: 05/26/2022 HISTORY: 81-year-old postmenopausal woman with history of osteoporosis. She is being treated with vitamin D and calcium, previously treated with alendronate. Evaluate bone mineral density. Additional risk factors for fracture: None FINDINGS (SPINE): The bone mineral density of L1-L4 was assessed by dual-energy x-ray absorptiometry. The average bone mineral density within this region is 0.671 gm/sq-cm. This is 0.8 standard deviations below the mean of the average bone mineral density for age- and gender-matched subjects (the Z-score). It is 3.4 standard deviations below the mean peak bone mineral density in young adults (the T-score). FINDINGS (FEMORAL NECK): The bone mineral density of the left femoral neck was assessed by dual-energy x-ray absorptiometry. The average bone mineral density within the femoral neck region is 0.543 gm/sq-cm. This is 0.5 standard deviations below the mean of the average bone mineral density for age- and gender-matched subjects (the Z-score). It is 2.8 standard deviations below the mean peak bone mineral density in young adults (the T-score). FINDINGS (TOTAL HIP): The bone mineral density of the left hip was assessed by dual-energy x-ray absorptiometry. The average bone mineral density within the total hip region is 0.642 gm/sq-cm. This is 0.4 standard deviations below the mean of the average bone mineral density for age- and gender-matched subjects (the Z-score). It is 2.5 standard deviations below the mean peak bone mineral density in young adults (the T-score). SUMMARY OF CURRENT RESULTS: Region BMD T-score Z-score AP Spine (L1-L4) 0.671 -3.4 -0.8 Femoral Neck (Left) 0.543 -2.8 -0.5 Total Hip (Left) 0.642 -2.5 -0.4 COMPARISON WITH PREVIOUS RESULTS Region Age BMD T-score BMD Change BMD Change Exam Date g/cm2 vs Baseline vs Previous AP Spine (L1-L4) 05/26/2022 81 0.671 -3.4 -16.9%# -8.0%* 01/09/2019 78 0.730 -2.9 -9.7%# 7.7%# 05/16/2014 73 0.677 -3.4 -16.1%* -7.2%* 06/12/2008 67 0.730 -2.9 -9.6%* -5.6%* 04/22/2006 65 0.774 -2.5 -4.2%* 2.5% 03/25/2004 63 0.755 -2.7 -6.5%* -7.6%* 09/21/2001 61 0.817 -2.1 1.1% 1.1% 05/11/1999 58 0.808 -2.2 Femoral Neck(Left) 05/26/2022 81 0.543 -2.8 -7.9%# 8.6%* 01/09/2019 78 0.500 -3.1 -15.2%# 3.8%# 05/16/2014 73 0.482 -3.3 -18.3%# -6.1%* 06/12/2008 67 0.514 -3.0 -13.0%# -6.6%* 04/22/2006 65 0.550 -2.7 -6.8%# -0.4% 03/25/2004 63 0.552 -2.7 -6.4%# -11.2%* 09/21/2001 61 0.621 -2.1 5.3%# 3.2%# 05/11/1999 58 0.602 -2.2 2.0% 2.0% 01/24/1997 56 0.590 -2.3 Total Hip(Left) 05/26/2022 81 0.642 -2.5 -16.3%# 1.5% 01/09/2019 78 0.632 -2.5 -17.6%# 1.8%# 05/16/2014 73 0.621 -2.6 -19.0%# -5.8%* 06/12/2008 67 0.659 -2.3 -14.1%# -5.4%* 04/22/2006 65 0.697 -2.0 -9.2%# 0.1% 03/25/2004 63 0.696 -2.0 -9.3%# -12.9%* 09/21/2001 61 0.799 -1.2 4.1%# 1.2%# 05/11/1999 58 0.790 -1.2 2.9% 2.9% 01/24/1997 56 0.767 -1.4 *Denotes significance at 95% confidence level # Denotes dissimilar scan types or analysis methods Procedure Note Ethel Cobb MD PhD - 05/26/2022 BONE DENSITOMETRY OF THE SPINE AND HIP DATE OF STUDY: 05/26/2022 HISTORY: 81-year-old postmenopausal woman with history of osteoporosis. She is being treated with vitamin D and calcium, previously treated with alendronate. Evaluate bone mineral density. Additional risk factors for fracture: None FINDINGS (SPINE): The bone mineral density of L1-L4 was assessed by dual-energy x-ray absorptiometry. The average bone mineral density within this region is 0.671 gm/sq-cm. This is 0.8 standard deviations below the mean of the average bone mineral density for age- and gender-matched subjects (the Z-score). It is 3.4 standard deviations below the mean peak bone mineral density in young adults (the T-score). FINDINGS (FEMORAL NECK): The bone mineral density of the left femoral neck was assessed by dual-energy x-ray absorptiometry. The average bone mineral density within the femoral neck region is 0.543 gm/sq-cm. This is 0.5 standard deviations below the mean of the average bone mineral density for age- and gender-matched subjects (the Z-score). It is 2.8 standard deviations below the mean peak bone mineral density in young adults (the T-score). FINDINGS (TOTAL HIP): The bone mineral density of the left hip was assessed by dual-energy x-ray absorptiometry. The average bone mineral density within the total hip region is 0.642 gm/sq-cm. This is 0.4 standard deviations below the mean of the average bone mineral density for age- and gender-matched subjects (the Z-score). It is 2.5 standard deviations below the mean peak bone mineral density in young adults (the T-score). SUMMARY OF CURRENT RESULTS: Region BMD T-score Z-score AP Spine (L1-L4) 0.671 -3.4 -0.8 Femoral Neck (Left) 0.543 -2.8 -0.5 Total Hip (Left) 0.642 -2.5 -0.4 COMPARISON WITH PREVIOUS RESULTS Region Age BMD T-score BMD Change BMD Change Exam Date g/cm2 vs Baseline vs Previous AP Spine (L1-L4) 05/26/2022 81 0.671 -3.4 -16.9%# -8.0%* 01/09/2019 78 0.730 -2.9 -9.7%# 7.7%# 05/16/2014 73 0.677 -3.4 -16.1%* -7.2%* 06/12/2008 67 0.730 -2.9 -9.6%* -5.6%* 04/22/2006 65 0.774 -2.5 -4.2%* 2.5% 03/25/2004 63 0.755 -2.7 -6.5%* -7.6%* 09/21/2001 61 0.817 -2.1 1.1% 1.1% 05/11/1999 58 0.808 -2.2 Femoral Neck(Left) 05/26/2022 81 0.543 -2.8 -7.9%# 8.6%* 01/09/2019 78 0.500 -3.1 -15.2%# 3.8%# 05/16/2014 73 0.482 -3.3 -18.3%# -6.1%* 06/12/2008 67 0.514 -3.0 -13.0%# -6.6%* 04/22/2006 65 0.550 -2.7 -6.8%# -0.4% 03/25/2004 63 0.552 -2.7 -6.4%# -11.2%* 09/21/2001 61 0.621 -2.1 5.3%# 3.2%# 05/11/1999 58 0.602 -2.2 2.0% 2.0% 01/24/1997 56 0.590 -2.3 Total Hip(Left) 05/26/2022 81 0.642 -2.5 -16.3%# 1.5% 01/09/2019 78 0.632 -2.5 -17.6%# 1.8%# 05/16/2014 73 0.621 -2.6 -19.0%# -5.8%* 06/12/2008 67 0.659 -2.3 -14.1%# -5.4%* 04/22/2006 65 0.697 -2.0 -9.2%# 0.1% 03/25/2004 63 0.696 -2.0 -9.3%# -12.9%* 09/21/2001 61 0.799 -1.2 4.1%# 1.2%# 05/11/1999 58 0.790 -1.2 2.9% 2.9% 01/24/1997 56 0.767 -1.4 *Denotes significance at 95% confidence level # Denotes dissimilar scan types or analysis methods IMPRESSION: 1. The bone mineral density of the lumbar spine is moderately decreased. There has been a statistically significant decrease in bone mineral density since the baseline examination of 05/11/1999. 2. The bone mineral density of the left femoral neck is moderately decreased. There has been a statistically significant decrease in bone mineral density since the baseline examination of 01/24/1997. 3. The bone mineral density of the left total hip is moderately decreased. There has been a statistically significant decrease in bone mineral density since the baseline examination of 01/24/1997. 4. Overall, the above findings are diagnostic of osteoporosis by WHO criteria. 5. Calculation of fracture risk using the FRAX model is not appropriate in certain settings. It was not performed in this patient because the patient met the following condition(s): treated for osteoporosis. General comments regarding interpretation of bone density measurements: A) In children, premenopausal woman and males under age 50 not at increased risk for fractures only Z-scores, not T-scores are used to indicate risk. A Z-score above -2.0 is defined as within the expected range for age and Z-score at or less than -2.0 is below the expected range for age. A Z-score below the expected range for age in a patient with recent fractures and/or chronic corticosteroid treatment is consistent with a diagnosis of osteoporosis. B) In post menopausal women and males over 50, comparison of the measured bone mineral density with the average value in young normal subjects (the T-score) has been found to be useful in assessing fracture risk. Fracture risk approximately doubles for each 1.0 standard deviation (SD) in individual's hip or spine bone mineral density is below the average value of young normal subjects. The World Health Organization (WHO) has defined T-scores of -1.0 to -2.5 as diagnostic of low bone mass (OSTEOPENIA), and T-scores of -2.5 or lower to be diagnostic of OSTEOPOROSIS, based on the site of lowest bone density. Note that there will be a change in reporting format and reference databases as patients move from the younger population (group A) to the older population (group B) The National Osteoporosis Foundation (www.nof.org) recommends adequate intake of calcium and vitamin D and regular weight-bearing exercise in all patients. They recommend pharmacologic treatment in postmenopausal women and men age 50 and older presenting with any of the followin) Osteoporosis, after appropriate evaluation to exclude secondary causes. 2) A hip or vertebral (clinical or radiographic) fracture, regardless of the bone density. 3) Low bone mass (Osteopenia) and one or more of: other prior fractures, secondary causes associated with high risk of fracture (such as glucocorticoid use or total immobilization), or computed high risk of fracture (10-yr probability of hip fracture >= 3% or a 10-yr probability of any major osteoporosis-related fracture >= 20% based on the [place].-adapted WHO algorithm), available at http://www.shef.ac.uk/FRAX). Dictated by: Hilaria Shafer MD The radiology attending physician has personally reviewed this study, and had reviewed and/or edited this written report and agrees with it. Electronically signed by: Ethel Ham MD, Ph.D Magy Ray MD IM DXA PROCEDURES Final R esult from Last 3 Months or Most Recently Relevant to Health Maintenance Insurance [facility] MEDICARE ADVANTAGE [facility] Address: [address] [address] [place] [address] [facility] MEDICARE ADVANTAGE [facility] Address: [address] [address] [place] [address] [facility] MEDICARE ADVANTAGE [facility] Address: [address] [address] [place] [address] Care Teams Value Advisor Relationship Specialty Start Date End Date Prince Walsh DO [address] [place] [address] PCP - General Family Medicine 08/14/25 Anthony Silva [place] [address] Consulting Physician Neurology 09/25/24
--- OUTSIDE RECORDS SUMMARY | 2025-09-09 17:20 | XMS_ITS | Clinical Summary ---
Author Organization [facility] Address [address] [place] [address] Care Team Providers Care Extrusion Die Repairer Name Role Phone Noelle Corrales MD Primary Care Provider Edmund SAUCEDO MD, Salvador Unavailable [phone] Gianna Manning MD Unavailable [phone] Source Comments [facility],non-owned Affiliates and Associated Physician Practices is amultiple site organization consisting of ambulatory clinics and hospital sitesin [place], [place], [place] and [place]. This disclosure is being madepursuant to the Care Everywhere program and may not contain all information available regarding this patient. Last updated 18.[facility] Allergies Active Allergy Reactions Criticality Noted Date Comments Hydrocodone Low 09/03/2013 itchy Medications * Be aware that medications may not be up to date on this document. Alwaysverify current medications with the patient. simvastatin (ZOCOR) 10 MG tabletIndicatio ns:Knee pain Take 10 mg by mouth at bedtime. Active atenolol (TENORMIN) 50 MG tabletIndicatio ns:Knee pain Take 50 mg by mouth once daily. Instructed to take AM of surgery Active MULTIPLE VITAMIN PO Take by mouth once daily. Active Calcium Carbonate (CALCIUM 500 PO) Take by mouth. 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 Knee pain 06/18/2013 Family History Medical History Relation Name Comments Diabetes Father Stroke Father Cancer Sister 3 esophagus CAD (Coronary Artery Disease) Sister 4 Diabetes Sister 5 Relation Name Status Comments Brother Alive Father (Age 74) CAD, CVA Mother (Age 72) ulcer Sister 1 Sister 2 Alive Sister 3 Sister 4 Sister 5 Social History Tobacco Use Types Packs/Day Years Used Date Smoking Tobacco: Never Smokeless Tobacco: Never Alcohol Use Standard Drinks/Week Comments Yes 0.8 (1 standard drink = 0.6 oz p ure alcohol) Comments No Sex and Gender Information Value Date Recorded Sex Assigned at Not on file Legal Sex Female 6:14 AM PRODUCT SUPPORT REP Gender Identity Not on file Sexual Orientation Not on file Occupation Industry Job Start Date Job End Date Not on file Not on file Not on file Not on file Last Filed Vital Signs Vital Sign Reading Time Taken Comments Blood Pressure 140/72 06/08/2017 12:45 PM CDT Pulse 62 06/08/2017 12:28 PM CDT Temperature 37 C (98.6 F) 06/08/2017 12:28 PM CDT Respiratory Rate 16 06/08/2017 12:28 PM CDT Oxygen Saturation 98% 06/08/2017 12:45 PM CDT Inhaled Oxygen Concentration - - Weight 66.2 kg (146 lb) 06/08/2017 11:14 AM CDT Height 154.9 cm (5' 1) 06/08/2017 11:14 AM CDT Body Mass Index 27.59 06/08/2017 11:14 AM CDT Plan of Treatment Health Maintenance Due Date Last Done Comments MEDICARE AWV 12 MONTHS 1940 DTAP/TDAP/TD VACCINES (1 - Tdap) 1961 PNEUMOCOCCAL VACCINE 50+ (1 of 2 - PCV) 1961 ZOSTER VACCINE (1 of 2) 1992 Respiratory Syncytial Virus (RSV) Vaccine Pt: or over 60 yrs (1 - 1-dose 75+ series) 2017 DEPRESSION SCREENING 11/21/2024 COVID-19 VACCINE ( - 2023-2 5 season) 2025 INFLUENZA VACCINE (#1) 2025 BONE DENSITY TESTING Completed 05/16/2014, 11/29/2011 HEPATITIS B VACCINE Aged Out No longe r eligible based on patient's age to complete this topic HIB VACCINE Aged Out No longer eligi ble based on patient's age to complete this topic HPV VACCINE Aged Out No longer eligi ble based on patient's age to complete this topic MENINGOCOCCAL (Group B) VACCINE SHARED DECISION-MAKING Aged Out No longer eligible based on patient's age to complete this topic MENINGOCOCCAL GROUPS A/C/Y/W VACCINE Aged Out No longer eligible b ased on patient's age to complete this topic Medical Devices Implanted Type Area Public Policy Coordinator Device Identifier Shelf Expiration Date Model / Serial / Lot Floseal 10ml Implanted:Qty: 1 on 08/07/2013 by Salvador Shaffer IV, MD at [facility] Left: Knee [employer] 10/20/2014 [id number] / / [id number] Mx Bone Jayy [place] B 40gm Implanted:Qty: 1 on 08/07/2013 by [place] Shaffer IV, MD at [facility] Left: Knee [employer] 11/19/2013 [id number] / / [id number] Articular Surface Femoral Size 4 8mm Implanted:Qty: 1 on 08/07/2013 by [place] Shaffer IV, MD at [facility] Left: Knee 08/20/2020 / / [id number] Femoral Component Size D Implanted:Qty: 1 on 08/07/2013 by Salvador Shaffer IV, MD at [facility] Left: Knee 07/20/2023 / / [id number] Tibial Component Size 4 Implanted:Qty: 1 on 08/07/2013 by Salvador Shaffer IV, MD at [facility] Left: Knee 05/20/2023 5842-02-19 / / [id number] Mx Bone Jayy [place] Implanted:Qty: 1 on 08/07/2013 at [facility] [employer] [id number] / / Procedures Procedure Name Priority Date/Time Associated Diagnosis Comments DEXA BONE DENSITY 2 SITES Routine 05/16/2014 from Last 3 Months or Most Recently Relevant to Health Maintenance Results * DEXA BONE DENSITY 2 SITES (05/16/2014) Anatomical Region Laterality Modality Other us Provider Unknown DEXA ORDERABLES Final Result from Last 3 Months or Most Recently Relevant to Health Maintenance Insurance [facility] MEDICARE [facility] Care Address: [facility] [address] [place] [address] Advance Directives * FULL RESUSCITATION (Latest Code Status on File) Date Activated Date Inactivated Comments 08/07/2013 1:17 PM 08/08/2013 6:04 PM Care Teams Extrusion Die Repairer Relationship Specialty Start Date End Date Noelle Corrales MD [address] [place] [address] PCP - General 11/29/11 [place] [address] [facility] [facility] [address] [place] [address] Orthopedic Surgery 06/18/13 Gianna Manning MD [address], [address] [place] [id number] Endocrinology 12/17/14
== END 2025-09-09 16:17 | disposition home or self-care (01) ==
LOC: ANHED 14:49
PROVIDERS: Emergency Provider Emergency Medicine; PCP Family Medicine
DX: S01.01XA Laceration without foreign body of scalp, initial encounter (principal); M89.9 Disorder of bone, unspecified; M47.812 Spondylosis without myelopathy or radiculopathy, cervical region; E78.5 Hyperlipidemia, unspecified; I10 Essential (primary) hypertension; G23.1 Progressive supranuclear ophthalmoplegia [Steele-Richardson-Olszewski]; Z23 Encounter for immunization; W01.0XXA Fall on same level from slipping, tripping and stumbling without subsequent striking against object, initial encounter
CPT/HCPCS: 12001; 70450; 72125; 90471; 90715; 99284

== ENCOUNTER 2025-10-08 09:59 | Outpatient (CLI) | payer MEDICARE, SELFPAY ==
--- NOTE | ~2025-10-08 | DEXA_ITS ---
Bone Density Report Name: AMY ALVAREZ Age: 85 Sex: Female Ethnicity: White Date of : 1940 Indication: postmenopausal; screening for osteoporosis; height loss; Referring Provider: ROCAEL MADDOX Study: Bone densitometry was performed. Exam Date: October 08, 2025 Accession number: [id number] Bone Density: Region BMD T-score Z-score Classification AP Spine(L1-L4) 0.626 -3.8 -1.0 Osteoporosis Femoral Neck (Left) 0.527 -2.9 -0.5 Osteoporosis Total Hip (Left) 0.605 -2.8 -0.5 Osteoporosis Femoral Neck (Right) 0.496 -3.2 -0.7 Osteoporosis Total Hip (Right) 0.591 -2.9 -0.6 Osteoporosis Total Hip Mean 0.598 -2.9 -0.6 Osteoporosis World Health Organization criteria for BMD impression classify patients as: Normal (T-score at or above -1.0), Osteopenia (T-score between -1.0 and -2.5), or Osteoporosis (T-score at or below -2.5). 10-year Fracture Risk: FRAX not reported because: Some T-score for Spine Total or Hip Total or Femoral Neck at or below -2.5 Treated for osteoporosis Clinical Information Provided by Patient: Is being treated for osteoporosis Has used the following medications: Fosamax (i.e. alendronate) Patient maximum height was 62 Menopause Age: 54 No regular weight bearing exercise Does not regularly consume dairy products Onset of menses at age 18 Number of children 3 Impression: The patient has osteoporosis, based on the Total Spine T-score. Discussion: It is important to ask patients whether they are taking their medications and to encourage continued and appropriate compliance with their osteoporosis therapies to reduce fracture risk. It is also important to review their risk factors and encourage appropriate calcium and vitamin D intakes, exercise, fall prevention and other lifestyle measures. Follow-Up: Consider a repeat BMD and Vertebral Fracture Assessment (VFA) exam in 2 years or sooner if medically necessary, to reassess this patient's status. Reported by: WM on 10/08/2025 10:32:00 AM. Reviewed, dictated and finalized at location A.
== END 2025-10-08 10:00 | disposition home or self-care (01) ==
LOC: MICIMG 10:00
PROVIDERS: PCP Family Medicine; Visit Provider Family Medicine
DX: M81.0 Age-related osteoporosis without current pathological fracture (principal)
CPT/HCPCS: 77080